=== PATIENT | female | born 1975 | race Caucasian/White ===

== ENCOUNTER 2020-10-12 11:56 | Emergency (ER) | payer SELFPAY ==
[~2020-10-12] VITALS: Ht 152.4 cm; Wt 45.5 kg
[2020-10-12] MEDS ORDERED: XANAX0.25 MG PO (12:58)
[2020-10-12] MEDS ORDERED: ZOLPIDEM5 M1 PO (12:58)
[2020-10-12 13:41] LABS: URINE BILIRUBIN - DIPSTICK NEGATIVE (NEGATIVE); URINE BLOOD DIPSTICK LARGE (NEGATIVE); URINE COLOR YELLOW; URINE GLUCOSE - DIPSTICK NEGATIVE (NEGATIVE); URINE KETONE NEGATIVE (NEGATIVE); URINE LEUK ESTERASE NEGATIVE (NEGATIVE); URINE NITRITE - DIPSTICK NEGATIVE (Negative); URINE PH 6.5 (4.5-8.0); URINE PROTEIN - DIPSTICK NEGATIVE (NEG-TRACE); URINE SPECIFIC GRAVITY <=1.005; URINE UROBILINOGEN - DIPSTICK 0.2 E.U./dL (0.2)
[2020-10-12 13:42] LABS: HEMATOCRIT 39.4 % (37.0-47.0); HEMOGLOBIN 13.4 g/dl (12.0-16.0); IMMATURE GRANULOCYTES 0.3 % (0.0-5.0); MEAN CELL VOLUME 90.8 fL CALC (80.0-100.0); MEAN CORPUSCULAR HGB 30.9 pG CALC (26.0-32.0); NEUT# 1.01 thou/uL (2.00-7.15); RED BLOOD COUNT 4.34 mill/uL (4.20-5.60); RED CELL DISTRI WIDTH 15.5 % (11.5-15.5)
[2020-10-12 13:46] LABS: URINE EPITHELIAL CELLS FEW EPI/hpf (0-FEW)
[2020-10-12 13:53] LABS: ALBUMIN 4.5 g/dL (3.2-5.0); ALKALINE PHOSPHATASE 75 u/l (38-126); ANION GAP 19 (6-22 (CALC)); BILIRUBIN, TOTAL 0.6 mg/dL (0.0-1.4); BUN 7 mg/dL (7-17); BUN/CREATININE RATIO 12 (12-20 (CALC)); CARBON DIOXIDE 19 mmol/l (22-30); CHLORIDE 107 mmol/l (95-108); CREATININE 0.6 mg/dL (0.5-1.0); GFR > 60 ML/MIN (>=60 (CALC)); GFR FOR AFR.AMER. > 60 ML/MIN (>=60 (CALC)); LIPASE 287 u/l (23-300); POTASSIUM 3.9 mmol/l (3.5-5.1); SGOT/AST 142 u/l (14-36); SODIUM 142 mmol/l (137-146); TOTAL PROTEIN 7.9 g/dL (6.3-8.2)
[2020-10-12 18:25] VITALS: BP 102/63
== END 2020-10-12 19:00 | disposition home or self-care (01) | DRG 897 ==
LOC: ED 11:56
DX: F10.10 Alcohol abuse, uncomplicated (principal); R79.89 Other specified abnormal findings of blood chemistry; F41.0 Panic disorder [episodic paroxysmal anxiety]; Z20.822 Contact with and (suspected) exposure to COVID-19

== ENCOUNTER 2021-04-21 12:37 | Inpatient (IN) | payer BC ==
[~2021-04-21] VITALS: Ht 152.4 cm; Wt 52.0 kg
[~2021-04-21 12:37] MED LIST: XANAX0.25 MG PO; ZOLPIDEM5 M1 PO
--- NOTE | 2021-04-21 12:45 | NUR ---
TO ROOM FOR TRIAGE
--- NOTE | 2021-04-21 13:00 | NUR ---
PATIENT RESTING, LABS OBTAINED, SPOUSE AT BEDSIDE. NO DISTRESS. WCTM
[2021-04-21 13:28] LABS: ALBUMIN 4.1 g/dL (3.2-5.0); AMYLASE 74 u/l (30-110); BILIRUBIN, TOTAL 0.5 mg/dL (0.0-1.4); BUN 8 mg/dL (7-17); BUN/CREATININE RATIO 19 (12-20 (CALC)); CHLORIDE 106 mmol/l (95-108); CREATININE 0.4 mg/dL (0.5-1.0); GFR > 60 ML/MIN (>=60 (CALC)); GFR FOR AFR.AMER. > 60 ML/MIN (>=60 (CALC)); LIPASE 530 u/l (23-300); POTASSIUM 3.6 mmol/l (3.5-5.1); SODIUM 147 mmol/l (137-146); TOTAL PROTEIN 8.4 g/dL (6.3-8.2)
[2021-04-21 13:37] LABS: HEMATOCRIT 39.6 % (37.0-47.0); HEMOGLOBIN 13.1 g/dl (12.0-16.0); MEAN CELL VOLUME 90.8 fL CALC (80.0-100.0); MEAN CORPUSCULAR HGB CONC 33.1 g/dL CAL (32.0-36.0); NEUT# 0.8 thou/uL (2.00-7.15); RED BLOOD COUNT 4.36 mill/uL (4.20-5.60); RED CELL DISTRI WIDTH 13.4 % (11.5-15.5)
[2021-04-21 13:38] LABS: ALKALINE PHOSPHATASE 115 u/l (38-126); ANION GAP 21 (6-22 (CALC)); CARBON DIOXIDE 24 mmol/l (22-30); ETHYL ALCOHOL 529 mg/dl (0-30); SGOT/AST 287 u/l (14-36)
--- NOTE | 2021-04-21 14:00 | NUR ---
Reassessment of patient completed. No distress noted. PATIENT RESTING, EYES CLOSED.
--- NOTE | 2021-04-21 14:20 | NUR ---
PATIENT ASSISTED ONTO BEDPAN FOR URINE SPECIMEN
[2021-04-21 14:30] LABS: URINE BILIRUBIN - DIPSTICK NEGATIVE (NEGATIVE); URINE BLOOD DIPSTICK NEGATIVE (NEGATIVE); URINE COLOR YELLOW; URINE GLUCOSE - DIPSTICK NEGATIVE (NEGATIVE); URINE KETONE NEGATIVE (NEGATIVE); URINE LEUK ESTERASE NEGATIVE (NEGATIVE); URINE PH 6.5 (4.5-8.0); URINE PROTEIN - DIPSTICK 30 mg/dL (NEG-TRACE); URINE SPECIFIC GRAVITY <=1.005
[2021-04-21 14:33] LABS: URINE NITRITE - DIPSTICK NEGATIVE (Negative)
[2021-04-21 14:37] LABS: URINE SQUAMOUS EPITHELIAL CELL FEW EPI/hpf (0-FEW)
--- NOTE | 2021-04-21 15:00 | NUR ---
NO DISTRESS. WCTM
--- NOTE | 2021-04-21 16:00 | NUR ---
PATIENT RESTING, NO CHANGE, VSS
--- NOTE | 2021-04-21 17:00 | NUR ---
NO CHANGE, AWAITING BED ASSIGNMENT. PATIENT DENIES NEEDS.
--- NOTE | 2021-04-21 18:30 | NUR ---
PATIENT RESTING. NO CHANGE. AWAITING BED ASSIGNEMNT
--- NOTE | 2021-04-21 20:54 | NUR ---
Admission Note Report Given to: Transported by: Wheelchair X Stretcher Transported with: X Nurse Transporter X Patent IV O2 X Special Ed Assistant Location: ICU X [facility]2
--- NOTE | 2021-04-21 20:55 | NUR ---
Reassessment of patient completed. No distress noted.
[2021-04-21 21:00] VITALS: BP 94/69
--- NOTE | 2021-04-21 21:00 | NUR ---
RECEIVED REPORT FROM ED NURSE JORDAN, PATIENT TRANSPORTED VIA BED, APPEARS TO BE DROWSY, WITH ONGOING IV MULTIVITAMINS @ 125CC/HR INFUSING WELL ON RAC, HOOKED ON TELEMETRY, PATIENT ORIENTED TO ROOM AND CALL LIGHT SYSTEM PATIENT PLACED ON BED ALARM, CALL LIGHT IN REACH
--- NOTE | 2021-04-21 21:12 | NUR ---
CIWA SCORE 12, PRN ATIVAN IV GIVEN.
[2021-04-22] VITALS: BP 96/63
--- NOTE | 2021-04-22 | NUR ---
PATIENT APPEARS TO BE SLEEPING WITH EYES CLOSED, BREATHIMG EVEN UNLABORED, CIWA SCORE 0, CALL LIGHT AT REACH.
[2021-04-22 04:00] VITALS: BP 96/63
--- NOTE | 2021-04-22 04:09 | NUR ---
PATIENT RESTING IN BED WITH EYES CLOSED, BREATHING UNLABORED, CIWA 1, CALL LIGHT AT REACH.
[2021-04-22 06:30] LABS: MEAN CELL VOLUME 92.7 fL CALC (80.0-100.0); MEAN CORPUSCULAR HGB 30.1 pG CALC (26.0-32.0); MEAN CORPUSCULAR HGB CONC 32.5 g/dL CAL (32.0-36.0); RED BLOOD COUNT 3.42 mill/uL (4.20-5.60); RED CELL DISTRI WIDTH 13.2 % (11.5-15.5)
[2021-04-22 06:46] LABS: HEMATOCRIT 31.7 % (37.0-47.0); HEMOGLOBIN 10.3 g/dl (12.0-16.0)
[2021-04-22 06:48] LABS: ANION GAP 12 (6-22 (CALC)); BUN 6 mg/dL (7-17); BUN/CREATININE RATIO 17 (12-20 (CALC)); CALCULATED LDLCHOLESTEROL 104 mg/dL (62-129 (CALC)); CARBON DIOXIDE 23 mmol/l (22-30); CHLORIDE 106 mmol/l (95-108); CHOLESTEROL HDL RATIO 3.4 (<4.4 (CALC)); CREATININE 0.4 mg/dL (0.5-1.0); GFR > 60 ML/MIN (>=60 (CALC)); GFR FOR AFR.AMER. > 60 ML/MIN (>=60 (CALC)); HDL CHOLESTEROL 50 mg/dL (>=40); MAGNESIUM 1.6 mg/dL (1.6-2.3); POTASSIUM 3.3 mmol/l (3.5-5.1); SODIUM 138 mmol/l (137-146); TOTAL CHOLESTEROL 169 mg/dl (0-199); TOTAL TRIGLYCERIDES 74 mg/dl (30-149); VLDL CHOLESTROL 15 mg/dl (1-41 (CALC))
--- NOTE | 2021-04-22 06:52 | NUR ---
REPORT REC FROM Manuel BERGERON RN
[2021-04-22 08:06] VITALS: BP 109/72
--- NOTE | 2021-04-22 08:06 | NUR ---
PT LAYING IN BED. A&O. PT MAKING MINIMAL EYE CONTACT, BUT PLEASANT. CIWA SCORE OF 13 GIVEN. TREMORS VISIBLY NOTED. MODERATLY ANXIOUS. SLIGHTL ANXIOUS, AGITATED. AND MILD LIANG REPORTED. PT DENIES ANY VISUAL OR AUDITORY HALLUCINATIONS, NO TACTILE DISTURBANCES REPORTED. CLEAR BREATH SOUNDS HEARD UPON AUSCULTATION. ACTIVE BOWEL SOUNDS X4 QUADRANTS. ASSESSMENT COMPLETED. CEMENT WORKER IN PLACE, BED ALARM PLACED FOR SAFETY. CALL LIGHT WITHIN REACH.
[2021-04-22 10:07] LABS: INTERNATIONAL NORMALIZED RATIO 1.1 RATIO (0.7-1.3); PROTHROMBIN TIME 11.6 SECONDS (9.0-12.5)
--- NOTE | 2021-04-22 10:10 | NUR ---
DR CORTÉS AND Sidney HOLDEN APRN AT BEDSIDE DISCUSSING POC
--- NOTE | 2021-04-22 10:18 | NUR ---
NAUSEA & VOMITING NOTED. ZOFRAN GIVEN. CALL LIGHT WITHIN REACH.
--- NOTE | 2021-04-22 10:42 | NUR ---
COMPATIBILITY WITH MAGNESIUM SULFATE AND MVI BAG, CONFIRMED WITH Sidney NEIL. BOTH ARE Y SITE COMPATIBLE
[2021-04-22 11:14] VITALS: BP 114/70
--- NOTE | 2021-04-22 11:54 | NUR ---
PT SLEEPING IN BED NO DISTRESS NOTED. CALL LIGHT WITHIN REACH. BED ALARM IN PLACE FOR SAFETY.
--- NOTE | 2021-04-22 12:25 | NUR ---
VERY UNSTEADY GAIT OBSERVED UPON AMBULATION TO THE BATHROOM. PT TWO PERSON ASSIST. PT UNABLE TO TOLERATE PO MEDICATIONS. D NAVIN GREWAL NOTIFIED. VOMITING EPISODE X2. BED ALARM PLACED FOR SAFETY. CALL LIGHT WITHIN REACH.
--- NOTE | 2021-04-22 14:54 | NUR ---
PT SLEEPING IN BED. AT BEDSIDE. CIWA CURRENTLY 13. PER D HAITIAN POTASSIUM CHLORIDE AND MVI BAG COMPATIBLE. K DOSSAGE AND RATE VERIFIED WITH Abhilash COELLO LPN. ATIVAN GIVEN PER MAR ORDERS. NO OTHER NEEDS AT THIS TIME. CALL LIGHT WITHIN REACH.
[2021-04-22 15:32] VITALS: BP 96/69
--- NOTE | 2021-04-22 16:11 | NUR ---
BED SOLIS PROVIDED. 600 CC OF URINE. CALL LIGHT WITHIN REACH.
--- NOTE | 2021-04-22 17:00 | NUR ---
PT TRANSFERRED TO ROOM 280, FOR CLOSER OBSERVATION. PT IN STABLE CONDITION DOING ROOM TRANSFER. PT ORIENTED TO ROOM. BED ALARM PLACED FOR SAFETY.
--- NOTE | 2021-04-22 18:13 | NUR ---
PT SLEEPING IN BED. PREMEDICATION WITH ZOFRAN FOR NAUSEA, GAVE SCHEDULED LIBRIUM DISSOLVED IN WATER, PT TOLERATED WELL. CALL LIGHT WITHIN REACH. BED ALARM IN PLACE FOR SAFETY.
[2021-04-22 19:00] VITALS: BP 91/62
--- NOTE | 2021-04-22 20:00 | NUR ---
PHYSICAL ASSESMENT COMPLETE. PT DIAPHORETIC WIH C/O OF NAUSEA. SCHEDULED MEDICATIONS AND PRN MEDICATION ADMINISTERED, SEE E-MAR. CIWA EVALUATION IN PLACE. PT DENIES ANY NEEDS AT THIS TIME. PLAN OF CARE REVIEWED, PT DENIES QUESTIONS, VERBALIZES UNDERSTANDING. ITEMS WITHIN REACH, BED LOCKED IN LOW POSITION W/ BEDRAILS UP X2. CALL RODRÍGUEZ WITHIN REACH, AGREES TO CALL PRN.
--- NOTE | 2021-04-22 22:28 | NUR ---
PT'S CIWA SCORED A 17. ADMINISTERED 2 MG OF ATIVAN. WILL CONTINUE TO MONITOR.
--- NOTE | 2021-04-22 23:54 | NUR ---
PT LAYING IN BED WITH EYES CLOSED, APPEARS TO BE SLEEPING, APPEARS COMFORTABLE AND IN NO DISTRESS. RESPIRATIONS REGULAR AND UNLABORED. WOKE PT TO GIVE HER 1200 OCLOCK MEDS.ITEMS REMAIN WITHIN REACH, CALL RODRÍGUEZ REMAINS WITHIN REACH. BED REMAINS LOCKED AND IN LOW POSITION WITH BEDRAILS UP X2. WILL CONTINUE TO MONITOR.
[2021-04-23] VITALS: BP 98/74
--- NOTE | 2021-04-23 03:43 | NUR ---
PT RESTING IN BED, PT VERY CONFUSED AND RESTLESS. MAKING REQUESTS FOR ATIVAN 15 MINUTES APART. RESP EVEN AND UNLABORED. CALL LIGHT IN REACH, CONTINUE TO MONITOR.
[2021-04-23 04:00] VITALS: BP 94/66
[2021-04-23 05:56] LABS: IMMATURE GRANULOCYTES 0.2 % (0.0-5.0); MEAN CELL VOLUME 94.8 fL CALC (80.0-100.0); MEAN CORPUSCULAR HGB CONC 31.7 g/dL CAL (32.0-36.0); NEUT# 3.04 thou/uL (2.00-7.15); RED CELL DISTRI WIDTH 12.9 % (11.5-15.5)
[2021-04-23 06:01] LABS: HEMATOCRIT 37.9 % (37.0-47.0)
[2021-04-23 06:09] LABS: ALKALINE PHOSPHATASE 109 u/l (38-126); BUN 4 mg/dL (7-17); BUN/CREATININE RATIO 11 (12-20 (CALC)); CHLORIDE 105 mmol/l (95-108); CREATININE 0.4 mg/dL (0.5-1.0); GFR > 60 ML/MIN (>=60 (CALC)); GFR FOR AFR.AMER. > 60 ML/MIN (>=60 (CALC)); MAGNESIUM 1.9 mg/dL (1.6-2.3); POTASSIUM 3.6 mmol/l (3.5-5.1); SGOT/AST 156 u/l (14-36); SODIUM 135 mmol/l (137-146)
[2021-04-23 06:14] LABS: ALBUMIN 3.2 g/dL (3.2-5.0); ANION GAP 18 (6-22 (CALC)); CARBON DIOXIDE 16 mmol/l (22-30); TOTAL PROTEIN 6.6 g/dL (6.3-8.2)
--- NOTE | 2021-04-23 08:00 | NUR ---
PT SLEEP UPON ENTERING ROOM. PTS VITAL AND ASSESSMENT DONE. S1 AND S2 HEARD. LUNG SOUNDS CLEAR. BOWEL SOUNDS ACTIVE IN ALL 4 QUADRANTS. IV PATENT AND HEALTHY. CIWA ASSESSMENT COMPLETED. NO DISTRESS NOTED. CALL LIGHT WITHIN REACH.
[2021-04-23 08:10] VITALS: BP 103/78
--- NOTE | 2021-04-23 10:47 | NUR ---
PT ASSISTED TO BSC, X1 ASSIST. LESS TREMORS NOTED COMPARED TO YESTERDAY, PT REPORTING TO FEEL BETTER TODAY. MORE AWAKE AND ALERT. ABLE TO CARRY A CONVERSATION. PLEASANT AND COOPERATIVE. ABI URINE NOTED, PT REPORTS TO HAVE TOLERATED BREAKFAST WELL. LINENS CHANGED BY THIS SLEEVE SEWER, PT ASSISTED BACK INTO BED. CALL LIGHT WITHIN REACH. BED ALARM IN PLACE FOR SAFETY.
--- NOTE | 2021-04-23 11:15 | NUR ---
DR CORTÉS AND Sidney HOLDEN APRN AT BEDSIDE DISCUSSING POC
[2021-04-23] MEDS ORDERED: ZOFRAN4 MG/TAB PO (11:24)
[2021-04-23] MEDS ORDERED: LIBRIUM25 M1 PO (11:24)
[2021-04-23 11:33] VITALS: BP 106/70
--- NOTE | 2021-04-23 12:00 | NUR ---
PT IN BED. NO DISTRESS NOTED. CALL LIGHT WITHIN REACH.
--- NOTE | 2021-04-23 14:00 | NUR ---
Discharge instructions given. Patient verbalizes understanding of same. Discharged in stable condition via Wheelchair to Home with staff. All belongings sent with pt.
== END 2021-04-23 14:01 | disposition home or self-care (01) | DRG 440 ==
LOC: ED 12:37 → ED-I 13:45 → ED 16:35 → MS2 16:36
PROVIDERS: Emergency Medicine; Nurse Practitioner; ADMIT Hospitalist; ATTEND Internal Medicine
DX: K85.20 Alcohol induced acute pancreatitis without necrosis or infection (principal); F10.220 Alcohol dependence with intoxication, uncomplicated; K86.0 Alcohol-induced chronic pancreatitis; K70.0 Alcoholic fatty liver; E83.42 Hypomagnesemia; E87.6 Hypokalemia; D69.6 Thrombocytopenia, unspecified; F41.0 Panic disorder [episodic paroxysmal anxiety]; Y90.8 Blood alcohol level of 240 mg/100 ml or more; Z20.822 Contact with and (suspected) exposure to COVID-19
CPT/HCPCS: J1650; J2060; J3475; Q9967; S0164

== ENCOUNTER 2021-05-28 11:15 | Emergency (ER) | payer BC ==
[~2021-05-28] VITALS: Ht 152.4 cm; Wt 48.0 kg
[~2021-05-28 11:15] MED LIST changes: +LIBRIUM25 M1 PO; +ZOFRAN4 MG/TAB PO
[2021-05-28 13:05] LABS: URINE BILIRUBIN - DIPSTICK NEGATIVE (NEGATIVE); URINE BLOOD DIPSTICK LARGE (NEGATIVE); URINE COLOR YELLOW; URINE GLUCOSE - DIPSTICK NEGATIVE (NEGATIVE); URINE KETONE NEGATIVE (NEGATIVE); URINE PROTEIN - DIPSTICK 100 mg/dL (NEG-TRACE); URINE SPECIFIC GRAVITY 1.015
[2021-05-28 13:09] LABS: URINE LEUK ESTERASE MODERATE (NEGATIVE); URINE NITRITE - DIPSTICK NEGATIVE (Negative)
[2021-05-28 13:23] LABS: URINE BACTERIA MANY hpf; URINE WBC >100 WBC/hpf (0-5)
[2021-05-28 13:24] LABS: URINE SQUAMOUS EPITHELIAL CELL FEW EPI/hpf (0-FEW)
[2021-05-28 14:42] LABS: ALBUMIN 4.9 g/dL (3.2-5.0); ALKALINE PHOSPHATASE 144 u/l (38-126); ANION GAP 23 (6-22 (CALC)); BILIRUBIN, TOTAL 0.8 mg/dL (0.0-1.4); BUN 12 mg/dL (7-17); BUN/CREATININE RATIO 25 (12-20 (CALC)); CARBON DIOXIDE 25 mmol/l (22-30); CHLORIDE 96 mmol/l (95-108); CREATININE 0.5 mg/dL (0.5-1.0); GFR > 60 ML/MIN (>=60 (CALC)); GFR FOR AFR.AMER. > 60 ML/MIN (>=60 (CALC)); LIPASE 456 u/l (23-300); POTASSIUM 4.2 mmol/l (3.5-5.1); SGOT/AST 222 u/l (14-36); SODIUM 140 mmol/l (137-146); TOTAL PROTEIN 9.2 g/dL (6.3-8.2)
[2021-05-28 14:43] LABS: HEMATOCRIT 40.2 % (37.0-47.0); MEAN CELL VOLUME 93.9 fL CALC (80.0-100.0); MEAN CORPUSCULAR HGB 30.4 pG CALC (26.0-32.0); MEAN CORPUSCULAR HGB CONC 32.3 g/dL CAL (32.0-36.0); NEUT# 3.39 thou/uL (2.00-7.15); RED BLOOD COUNT 4.28 mill/uL (4.20-5.60)
[2021-05-28 16:34] VITALS: BP 121/72
== END 2021-05-28 17:10 | disposition home or self-care (01) | DRG 552 ==
LOC: ED 11:15
PROVIDERS: Family Medicine
DX: M54.2 Cervicalgia (principal); K70.0 Alcoholic fatty liver; F10.20 Alcohol dependence, uncomplicated; D69.59 Other secondary thrombocytopenia; G62.9 Polyneuropathy, unspecified
CPT/HCPCS: J2060

== ENCOUNTER 2021-09-03 08:52 | Emergency (ER) | payer BC ==
[~2021-09-03] VITALS: Ht 152.4 cm; Wt 49.4 kg
[2021-09-03 09:45] LABS: HEMATOCRIT 37.1 % (37.0-47.0); IMMATURE GRANULOCYTES 0.2 % (0.0-5.0); MEAN CELL VOLUME 89.4 fL CALC (80.0-100.0); MEAN CORPUSCULAR HGB 28.9 pG CALC (26.0-32.0); MEAN CORPUSCULAR HGB CONC 32.3 g/dL CAL (32.0-36.0); NEUT# 3.25 thou/uL (2.00-7.15); RED BLOOD COUNT 4.15 mill/uL (4.20-5.60); RED CELL DISTRI WIDTH 13.7 % (11.5-15.5)
[2021-09-03 10:07] LABS: ALBUMIN 4.5 g/dL (3.2-5.0); ALKALINE PHOSPHATASE 91 u/l (38-126); AMYLASE 55 u/l (30-110); BUN 13 mg/dL (7-17); BUN/CREATININE RATIO 20 (12-20 (CALC)); CHLORIDE 99 mmol/l (95-108); CREATININE 0.7 mg/dL (0.5-1.0); GFR > 60 ML/MIN (>=60 (CALC)); GFR FOR AFR.AMER. > 60 ML/MIN (>=60 (CALC)); LIPASE 199 u/l (23-300); POTASSIUM 3.9 mmol/l (3.5-5.1); SODIUM 136 mmol/l (137-146); TOTAL PROTEIN 8.4 g/dL (6.3-8.2)
[2021-09-03 10:11] LABS: ANION GAP 22 (6-22 (CALC)); CARBON DIOXIDE 19 mmol/l (22-30); SGOT/AST 55 u/l (14-36)
[2021-09-03 10:20] LABS: MYOGLOBIN 21 ng/mL (0 - 62)
[2021-09-03] MEDS ORDERED: ONDANSETRON4 MG PO (11:32)
[2021-09-03] MEDS ORDERED: TAM75CAP PO (11:32)
[2021-09-03 11:51] LABS: URINE BILIRUBIN - DIPSTICK NEGATIVE (NEGATIVE); URINE BLOOD DIPSTICK NEGATIVE (NEGATIVE); URINE COLOR YELLOW; URINE GLUCOSE - DIPSTICK NEGATIVE (NEGATIVE); URINE KETONE >=80 mg/dL (NEGATIVE); URINE LEUK ESTERASE NEGATIVE (NEGATIVE); URINE PROTEIN - DIPSTICK 30 mg/dL (NEG-TRACE); URINE SPECIFIC GRAVITY >=1.030; URINE UROBILINOGEN - DIPSTICK 0.2 E.U./dL (0.2)
[2021-09-03 11:59] LABS: URINE NITRITE - DIPSTICK NEGATIVE (Negative)
[2021-09-03 12:01] LABS: URINE SQUAMOUS EPITHELIAL CELL MODERATE EPI/hpf (0-FEW)
[2021-09-03 12:04] LABS: URINE RBC 0-2 RBC/hpf (0-5); URINE TRANSITIONAL EPI. CELLS FEW hpf
[2021-09-03 13:27] VITALS: BP 99/68
== END 2021-09-03 13:27 | disposition home or self-care (01) | DRG 153 ==
LOC: ED 08:52
PROVIDERS: Emergency Medicine
DX: J11.1 Influenza due to unidentified influenza virus with other respiratory manifestations (principal); G62.9 Polyneuropathy, unspecified; F41.0 Panic disorder [episodic paroxysmal anxiety]; Z20.822 Contact with and (suspected) exposure to COVID-19

== ENCOUNTER 2021-10-28 10:40 | Emergency (ER) | payer SELFPAY ==
[~2021-10-28] VITALS: Ht 152.4 cm; Wt 55.0 kg
[~2021-10-28 10:40] MED LIST changes: +ONDANSETRON4 MG PO; +TAM75CAP PO
[2021-10-28] MEDS ORDERED: FLEXERIL5 M1 PO (13:26)
[2021-10-28] MEDS ORDERED: ZOFRAN4 MG/TAB PO (13:26)
[2021-10-28] MEDS ORDERED: TORADOL PO (13:26)
[2021-10-28 13:45] VITALS: BP 104/73
== END 2021-10-28 13:45 | disposition home or self-care (01) | DRG 153 ==
LOC: ED 10:40
DX: J11.1 Influenza due to unidentified influenza virus with other respiratory manifestations (principal); G62.9 Polyneuropathy, unspecified; Z20.822 Contact with and (suspected) exposure to COVID-19

== ENCOUNTER 2022-05-27 13:11 | Inpatient (IN) | payer OTHER ==
[~2022-05-27] VITALS: Ht 152.4 cm; Wt 54.5 kg
[~2022-05-27 13:11] MED LIST changes: +FLEXERIL5 M1 PO; +TORADOL PO
--- NOTE | 2022-05-27 13:15 | NUR ---
PT TO ROOM VIA WC
--- NOTE | 2022-05-27 14:00 | NUR ---
Reassessment of patient completed. No distress noted.
[2022-05-27 14:16] LABS: BILIRUBIN, TOTAL 1.1 mg/dL (0.0-1.4); BUN 10 mg/dL (7-17); BUN/CREATININE RATIO 18 (12-20 (CALC)); CARBON DIOXIDE 20 mmol/l (22-30); CREATININE 0.6 mg/dL (0.5-1.0); GFR FOR AFR.AMER. > 60 ML/MIN (>=60 (CALC)); GFR OTHER RACES > 60 ML/MIN (>=60 (CALC)); LIPASE 468 u/l (23-300); TOTAL PROTEIN 7.8 g/dL (6.3-8.2)
[2022-05-27 14:30] LABS: HEMATOCRIT 37.5 % (37.0-47.0); HEMOGLOBIN 12.7 g/dl (12.0-16.0); MEAN CELL VOLUME 88.4 fL CALC (80.0-100.0); MEAN CORPUSCULAR HGB CONC 33.9 g/dL CAL (32.0-36.0); NEUT# 0.88 thou/uL (2.00-7.15); RED BLOOD COUNT 4.24 mill/uL (4.20-5.60); RED CELL DISTRI WIDTH 15.6 % (11.5-15.5)
[2022-05-27 14:58] LABS: ALKALINE PHOSPHATASE 142 u/l (38-126); SGOT/AST 616 u/l (14-36)
--- NOTE | 2022-05-27 15:00 | NUR ---
Reassessment of patient completed. No distress noted.
[2022-05-27 15:32] LABS: ANION GAP 23 (6-22 (CALC)); CHLORIDE 99 mmol/l (95-108); POTASSIUM 3.7 mmol/l (3.5-5.1); SODIUM 138 mmol/l (137-146)
[2022-05-27 15:49] LABS: INTERNATIONAL NORMALIZED RATIO 1.2 RATIO (0.7-1.3); PROTHROMBIN TIME 11.5 SECONDS (9.0-12.5)
--- NOTE | 2022-05-27 16:00 | NUR ---
Reassessment of patient completed. No distress noted.
[2022-05-27 16:15] LABS: ETHYL ALCOHOL 324 mg/dl (0-30)
[2022-05-27] MEDS ORDERED: FLEXERIL5 M1 PO (16:30)
--- NOTE | 2022-05-27 17:00 | NUR ---
Reassessment of patient completed. No distress noted.
[2022-05-27 17:26] VITALS: BP 123/85
--- NOTE | 2022-05-27 17:34 | NUR ---
Admission Note Report Given to: yessica jasmine rn Transported by: Wheelchair X Stretcher Transported with: X Nurse Transporter X Patent IV O2 X Pearl Restorer Location: ICU X [facility]2 PATIENT REPORT GIVEN AT BEDSIDE. PATIENT ON ROOM AIR O2. NAD NOTED
--- NOTE | 2022-05-27 17:36 | NUR ---
PT ARRIVED TO MS @ 1736 VIA STRETCHER, ACCOMPANIED BY JONATHAN MARTIN. RECEIVED BEDSIDE REPORT FROM ER NURSE. PT A&O X3. PT ORIENTED TO ROOM AND USE OF CALL LIGHT. EVEN AND UNLABORED RESPIRATIONS; CLEAR LUNG SOUNDS UPON AUSCULTATION. TELEMETRY IN PLACE. IV SITE FLUSHED: #20G RIGHT FOREARM, HEALTHY AND PATENT. ACTIVE BOWEL SOUNDS X4 QUADRANTS. SKIN IS INTACT. SAFETY PRECAUTIONS IN PLACE WITH CALL LIGHT IN REACH.
[2022-05-27 19:19] VITALS: BP 101/74
--- NOTE | 2022-05-27 21:20 | NUR ---
PATIENT RESTING IN BED. NO DISTRESS NOTED. AOX3. ASSESSMENT COMPLETED. FALL PRECAUTIONS IN PALCE. CALL RODRÍGUEZ WITHIN REACH.
[2022-05-28 00:12] VITALS: BP 97/64
--- NOTE | 2022-05-28 03:38 | NUR ---
RECEIVED CALL FROM ELECTRIC BLANKET PACKER OF PATIENT ELEVATED HR 170'S. ON ASSESSMENT PATIENT ATTEMPTING TO GET OUT OF BED TO USE BATHROOM. PATIENT ASSISTED TO BATHROOM. PATIENT HAD ACCIDENTAL INCONTINENCE DUE TO URGENCY. ASSISTED PATIENT TO CLEAN UP AND BACK TO BED. CIWA SCALE COMPLETED. VISIBLE TREMORS, ANXIETY AND NAUSEA PRESENT. BED ALAM INITIATED. FALL PRECAUTIONS IN PLACE. CALL RODRÍGUEZ WITHIN REACH.
--- NOTE | 2022-05-28 03:43 | NUR ---
NOTIFIED BY ORACLE ADF DEVELOPER THAT PATIENT HAD POSSIBLE RYTHYM CHANGE TO AFLUTTER. ORDER PLACED FOR EKG. RT COMPLETED EKG. SEE RESULT IN CHART.NO CHANGES NOTED. NO FURTHER ACTIONS AT THIS TIME. FALL PRECAUTIONS IN PLACE. CALL RODRÍGUEZ WITHIN REACH.
[2022-05-28 03:46] VITALS: BP 108/72
[2022-05-28 05:46] LABS: URINE BLOOD DIPSTICK NEGATIVE (NEGATIVE); URINE COLOR YELLOW; URINE GLUCOSE - DIPSTICK NEGATIVE (NEGATIVE); URINE KETONE 15 mg/dL (NEGATIVE); URINE LEUK ESTERASE TRACE (NEGATIVE); URINE PH 7.5 (4.5-8.0); URINE PROTEIN - DIPSTICK TRACE mg/dL (NEG-TRACE); URINE UROBILINOGEN - DIPSTICK >=8.0 E.U./dL (0.2)
[2022-05-28 05:48] LABS: URINE BILIRUBIN - DIPSTICK SMALL (NEGATIVE); URINE NITRITE - DIPSTICK POSITIVE (Negative)
[2022-05-28 05:55] LABS: HEMATOCRIT 34.1 % (37.0-47.0); HEMOGLOBIN 11.4 g/dl (12.0-16.0); MEAN CELL VOLUME 90.5 fL CALC (80.0-100.0); MEAN CORPUSCULAR HGB 30.2 pG CALC (26.0-32.0); MEAN CORPUSCULAR HGB CONC 33.4 g/dL CAL (32.0-36.0); NEUT# 1.32 thou/uL (2.00-7.15); RED BLOOD COUNT 3.77 mill/uL (4.20-5.60); RED CELL DISTRI WIDTH 15.8 % (11.5-15.5)
[2022-05-28 06:07] LABS: URINE SQUAMOUS EPITHELIAL CELL FEW EPI/hpf (0-FEW)
[2022-05-28 06:08] LABS: URINE BACTERIA MANY hpf
[2022-05-28 06:16] VITALS: BP 109/79
[2022-05-28 07:17] LABS: ALBUMIN 3.3 g/dL (3.2-5.0); ALKALINE PHOSPHATASE 112 u/l (38-126); AMYLASE 64 u/l (30-110); ANION GAP 19 (6-22 (CALC)); BILIRUBIN, TOTAL 1.4 mg/dL (0.0-1.4); BUN 6 mg/dL (7-17); BUN/CREATININE RATIO 13 (12-20 (CALC)); CARBON DIOXIDE 18 mmol/l (22-30); CHLORIDE 103 mmol/l (95-108); CREATININE 0.5 mg/dL (0.5-1.0); GFR FOR AFR.AMER. > 60 ML/MIN (>=60 (CALC)); GFR OTHER RACES > 60 ML/MIN (>=60 (CALC)); LIPASE 501 u/l (23-300); MAGNESIUM 1.1 mg/dL (1.6-2.3); POTASSIUM 3.4 mmol/l (3.5-5.1); SGOT/AST 461 u/l (14-36); SODIUM 138 mmol/l (137-146); TOTAL PROTEIN 6.5 g/dL (6.3-8.2)
--- NOTE | 2022-05-28 07:20 | NUR ---
RECEIVED HANDOFF REPORT FROMN OFFGOING RN. PATIENT ALERT AND ORIENTED X3. PATIENT VOMITTING UPON ENTERING THE ROOM. EMESIS BAGS PROVIDED AND OFFERED MEDS FOR NAUSEA, HOWEVER PATEINT STATES THAT THE MEDICATION OFFEED DOES NOT WORK. PATIENT OFFERED ADDITIONAL PILLOWS TO REPOSITION. CALL LIGHT WITHIN REACH. BED LOCKED IN LOWEST POSITION.
[2022-05-28 10:04] VITALS: BP 115/81
--- NOTE | 2022-05-28 11:25 | NUR ---
PATIENT WAS GIVEN PO MEDS AND BEGAN TO GAG AND STATED THAT SHE COULD NOT SWALLOW THEM. MD AND EMBEDDED SOFTWARE DESIGN ENGINEER NOTIFIED AND ORDERS HAVE BEEN PROVIDED.
--- NOTE | 2022-05-28 13:41 | NUR ---
PATIENT ALERT AND ORIENTED X3. PATIENT COMPLAINED OF NAUSEA HOWEVER IS STILL REFUSING MEDICATION. CALL LIGHT WITHIN REACH, BED LOCKED IN LOWEST POSITION.
[2022-05-28 14:24] VITALS: BP 107/79
--- NOTE | 2022-05-28 16:45 | NUR ---
PATIENT ASLEEP, IV RUNNING MAG SULF. BED LOCKED IN LOWEST POSITION, CALL LIGHT WITHIN REACH.
[2022-05-28 18:48] VITALS: BP 104/73
--- NOTE | 2022-05-28 18:55 | NUR ---
DUE TO PT CONDITION EARLIER IN SHIFT, MEDICATIONS WERE DELAYED UNTIL STABLE. PATIENT WILL NEED TO RECEIVE 1100A ABX ONCE MAG. SULFATE INFUSION COMPLETES. PATIENTS MEDS HAD TO BE CHANGED FROM PO TO IV BECAUSE SHE COULD NOT SWALLOW MEDICATION WITHOUT GAGGING AND CHOKING. WILL NOTIFY NIGHTSHIFT RN.
--- NOTE | 2022-05-28 20:00 | NUR ---
PT IN BED AWAKE, PT CIWA SCORE 6, PT HAS MILD TREMOR AND MILD ANXIETY, NO DISTRESS NOTED, PT STATES NO PAIN AND SHE IS FEELING BETTER, BED ALARM ON AND IN LOW POSITION, CALL LIGHT IN REACH
[2022-05-29 00:10] VITALS: BP 100/68
[2022-05-29 04:29] VITALS: BP 98/67
--- NOTE | 2022-05-29 04:57 | NUR ---
PT IN BED AWAKE, NO DISTRESS NOTED, CIWA SCORE 5, MILD TREMORS AND MILD ANXIETY, NO OVERNIGHT EVENTS, BED ALARM ON AND IN LOW POSITION, CALL LIGHT IN REACH
[2022-05-29 05:37] LABS: HEMATOCRIT 34.4 % (37.0-47.0); HEMOGLOBIN 11.7 g/dl (12.0-16.0); IMMATURE GRANULOCYTES 0.4 % (0.0-5.0); MEAN CELL VOLUME 88.9 fL CALC (80.0-100.0); MEAN CORPUSCULAR HGB 30.2 pG CALC (26.0-32.0); NEUT# 1.69 thou/uL (2.00-7.15); RED BLOOD COUNT 3.87 mill/uL (4.20-5.60); RED CELL DISTRI WIDTH 15.3 % (11.5-15.5)
[2022-05-29 05:57] LABS: ALBUMIN 3.1 g/dL (3.2-5.0); ALKALINE PHOSPHATASE 133 u/l (38-126); ANION GAP 12 (6-22 (CALC)); BUN 2 mg/dL (7-17); BUN/CREATININE RATIO 6 (12-20 (CALC)); CARBON DIOXIDE 19 mmol/l (22-30); CHLORIDE 107 mmol/l (95-108); CREATININE 0.4 mg/dL (0.5-1.0); GFR FOR AFR.AMER. > 60 ML/MIN (>=60 (CALC)); GFR OTHER RACES > 60 ML/MIN (>=60 (CALC)); LIPASE 482 u/l (23-300); POTASSIUM 3.4 mmol/l (3.5-5.1); SGOT/AST 350 u/l (14-36); SODIUM 134 mmol/l (137-146); TOTAL PROTEIN 6.2 g/dL (6.3-8.2)
[2022-05-29 06:02] LABS: BILIRUBIN, TOTAL 2.2 mg/dL (0.0-1.4); MAGNESIUM 1.8 mg/dL (1.6-2.3)
[2022-05-29 06:27] VITALS: BP 105/73
[2022-05-29 06:51] VITALS: BP 105/73
--- NOTE | 2022-05-29 07:34 | NUR ---
PT RESTING IN LOW FOWLERS POSITION. A/OX3 ASSESSMENT AND VS COMPLETED. HEART RHYTHM NORMAL. RESPIRATIONS EVEN AND UNLABORED. BOWEL SOUNDS ACTIVE. PT STATES UNABLE TO SWALLOW PILLS BUT WILL BE WILLING TO TRY. IV SITE NOTED TO RFA. INFUSIGN WITH NS @60. PT STATES NO WOUNDS TO SKIN. PT STATES ABLE TO URINATE WELL. PT STATES NO ADDITIONAL NEEDS AT THE TIME ALL SAFETY PRECAUTIONS IN PLACE.
[2022-05-29 10:06] VITALS: BP 104/74
[2022-05-29 10:07] VITALS: BP 104/74
[2022-05-29] MEDS ORDERED: KEFLEX500 MG PO (11:33)
[2022-05-29] MEDS ORDERED: LIBRIUM25 MG PO (11:33)
--- NOTE | 2022-05-29 11:51 | NUR ---
PT TO BE DC SOON . PT DENIES ADDITIONAL NEEDS AT THE TIME OTHER THAN READY TO GO HOME. ALL SAFETY PRECAUTIONS IN PLACE .
--- NOTE | 2022-05-29 14:24 | NUR ---
Discharge instructions given. Patient verbalizes understanding of same. Discharged in stable condition via Wheelchair to Home with volunteer. All belongings sent with pt. PT IV REMOVED , TELE REMOVED WITH ER INFORMED.
[2022-05-30] MEDS ORDERED: LIBRIUM25 MG PO (11:24)
== END 2022-05-29 14:24 | disposition home or self-care (01) | DRG 439 ==
LOC: ED 13:11 → ED-I 14:26 → ED 14:26 → ED-I 15:50 → ED 16:27 → MS2 16:28
PROVIDERS: Nurse Practitioner; ADMIT Internal Medicine; ATTEND Internal Medicine
DX: K85.20 Alcohol induced acute pancreatitis without necrosis or infection (principal); F10.239 Alcohol dependence with withdrawal, unspecified; N39.0 Urinary tract infection, site not specified; K70.10 Alcoholic hepatitis without ascites; J45.909 Unspecified asthma, uncomplicated; G62.9 Polyneuropathy, unspecified; F41.0 Panic disorder [episodic paroxysmal anxiety]; K70.0 Alcoholic fatty liver; Y90.8 Blood alcohol level of 240 mg/100 ml or more; D69.59 Other secondary thrombocytopenia; Z20.822 Contact with and (suspected) exposure to COVID-19
CPT/HCPCS: G0378; J2060; J3475; S0164

== ENCOUNTER 2022-08-25 14:18 | Emergency (ER) | payer OTHER ==
[2022-08-25] VITALS (13 sets, daily range): BP systolic 108–148; BP diastolic 80–112
[~2022-08-25] VITALS: Ht 152.4 cm; Wt 54.5 kg
[~2022-08-25 14:18] MED LIST changes: +KEFLEX500 MG PO; +LIBRIUM25 MG PO
[2022-08-25 15:58] LABS: HEMATOCRIT 33.3 % (37.0-47.0); HEMOGLOBIN 11.7 g/dl (12.0-16.0); IMMATURE GRANULOCYTES 0.3 % (0.0-5.0); MEAN CELL VOLUME 90.7 fL CALC (80.0-100.0); MEAN CORPUSCULAR HGB 31.9 pG CALC (26.0-32.0); MEAN CORPUSCULAR HGB CONC 35.1 g/dL CAL (32.0-36.0); NEUT# 2.15 thou/uL (2.00-7.15); RED BLOOD COUNT 3.67 mill/uL (4.20-5.60); RED CELL DISTRI WIDTH 15.7 % (11.5-15.5)
[2022-08-25 16:17] LABS: ALKALINE PHOSPHATASE 177 u/l (38-126); BUN 5 mg/dL (7-17); BUN/CREATININE RATIO 10 (12-20 (CALC)); CHLORIDE 96 mmol/l (95-108); CREATININE 0.5 mg/dL (0.5-1.0); GFR FOR AFR.AMER. > 60 ML/MIN (>=60 (CALC)); GFR OTHER RACES > 60 ML/MIN (>=60 (CALC)); LIPASE 508 u/l (23-300); POTASSIUM 2.9 mmol/l (3.5-5.1); SGOT/AST 454 u/l (14-36); SODIUM 138 mmol/l (137-146)
[2022-08-25 16:22] LABS: URINE BLOOD DIPSTICK NEGATIVE (NEGATIVE); URINE GLUCOSE - DIPSTICK 100 mg/dL (NEGATIVE); URINE KETONE TRACE mg/dL (NEGATIVE); URINE LEUK ESTERASE NEGATIVE (NEGATIVE); URINE PROTEIN - DIPSTICK 30 mg/dL (NEG-TRACE); URINE SPECIFIC GRAVITY 1.015; URINE UROBILINOGEN - DIPSTICK >=8.0 E.U./dL (0.2)
[2022-08-25 16:23] LABS: ALBUMIN 4.4 g/dL (3.2-5.0); ANION GAP 20 (6-22 (CALC)); BILIRUBIN, TOTAL 7.4 mg/dL (0.0-1.4); CARBON DIOXIDE 25 mmol/l (22-30); TOTAL PROTEIN 8.7 g/dL (6.3-8.2)
[2022-08-25 16:26] LABS: URINE BILIRUBIN - DIPSTICK LARGE (NEGATIVE); URINE COLOR AMBER; URINE NITRITE - DIPSTICK NEGATIVE (Negative)
[2022-08-25 16:27] LABS: URINE RBC 0-2 RBC/hpf (0-5); URINE WBC 0-2 WBC/hpf (0-5)
[2022-08-25] MEDS ORDERED: ZOLPIDEM10 M1 PO (18:29)
[2022-08-25] MEDS ORDERED: PROMETHAZINE HY25 M1 PO (20:18)
[2022-08-25] MEDS ORDERED: POTASSIUM CHLO20 ME1 PO (20:18)
== END 2022-08-25 20:40 | disposition home or self-care (01) | DRG 948 ==
LOC: ED 14:18
PROVIDERS: Family Medicine
DX: R74.8 Abnormal levels of other serum enzymes (principal); K70.0 Alcoholic fatty liver; F10.20 Alcohol dependence, uncomplicated; E87.6 Hypokalemia
CPT/HCPCS: J3475; Q9967

== ENCOUNTER 2022-09-08 16:59 | Emergency (ER) | payer OTHER ==
[~2022-09-08] VITALS: Ht 152.4 cm; Wt 55.0 kg
[2022-09-08] VITALS (11 sets, daily range): BP systolic 93–111; BP diastolic 62–75
[~2022-09-08 16:59] MED LIST changes: +POTASSIUM CHLO20 ME1 PO; +PROMETHAZINE HY25 M1 PO; +ZOLPIDEM10 M1 PO
[2022-09-08] MEDS ORDERED: MAGNESIUM400 M1 PO (17:22)
[2022-09-08] MEDS ORDERED: POTASSIUM99 MG PO (17:22)
[2022-09-08] MEDS ORDERED: FOLIC ACID1 M1 PO (17:23)
[2022-09-08] MEDS ORDERED: B1100 MG PO (17:23)
[2022-09-08] MEDS ORDERED: MULT VITAMIN PO (17:24)
[2022-09-08 17:44] LABS: URINE BLOOD DIPSTICK NEGATIVE (NEGATIVE); URINE GLUCOSE - DIPSTICK 100 mg/dL (NEGATIVE); URINE KETONE TRACE mg/dL (NEGATIVE); URINE LEUK ESTERASE NEGATIVE (NEGATIVE); URINE PROTEIN - DIPSTICK NEGATIVE (NEG-TRACE); URINE UROBILINOGEN - DIPSTICK 0.2 E.U./dL (0.2)
[2022-09-08 17:46] LABS: HEMATOCRIT 36.3 % (37.0-47.0); HEMOGLOBIN 11.9 g/dl (12.0-16.0); IMMATURE GRANULOCYTES 0.6 % (0.0-5.0); MEAN CORPUSCULAR HGB 34.4 pG CALC (26.0-32.0); MEAN CORPUSCULAR HGB CONC 32.8 g/dL CAL (32.0-36.0); NEUT# 4.43 thou/uL (2.00-7.15); RED BLOOD COUNT 3.46 mill/uL (4.20-5.60); RED CELL DISTRI WIDTH 21.2 % (11.5-15.5)
[2022-09-08 17:47] LABS: MEAN CELL VOLUME 104.9 fL CALC (80.0-100.0); URINE BILIRUBIN - DIPSTICK LARGE (NEGATIVE); URINE COLOR DK. YELLOW; URINE NITRITE - DIPSTICK NEGATIVE (Negative)
[2022-09-08 17:54] LABS: ALBUMIN 3.8 g/dL (3.2-5.0); ALKALINE PHOSPHATASE 156 u/l (38-126); BUN 5 mg/dL (7-17); BUN/CREATININE RATIO 12 (12-20 (CALC)); CARBON DIOXIDE 20 mmol/l (22-30); CHLORIDE 105 mmol/l (95-108); CREATININE 0.4 mg/dL (0.5-1.0); GFR FOR AFR.AMER. > 60 ML/MIN (>=60 (CALC)); GFR OTHER RACES > 60 ML/MIN (>=60 (CALC)); LIPASE 498 u/l (23-300); SGOT/AST 160 u/l (14-36); SODIUM 139 mmol/l (137-146); TOTAL PROTEIN 8.6 g/dL (6.3-8.2)
[2022-09-08 17:55] LABS: ANION GAP 18 (6-22 (CALC)); POTASSIUM 4.3 mmol/l (3.5-5.1)
[2022-09-08 17:56] LABS: BILIRUBIN, TOTAL 26.2 mg/dL (0.0-1.4)
== END 2022-09-08 21:40 | disposition home or self-care (01) | DRG 442 ==
LOC: ED 16:59
PROVIDERS: Family Medicine
DX: K70.0 Alcoholic fatty liver (principal); R17 Unspecified jaundice; R94.5 Abnormal results of liver function studies; F10.20 Alcohol dependence, uncomplicated
CPT/HCPCS: Q9967

== ENCOUNTER 2022-12-30 09:26 | Emergency (ER) | payer OTHER ==
[~2022-12-30] VITALS: Ht 152.4 cm; Wt 52.2 kg
[~2022-12-30 09:26] MED LIST changes: +B1100 MG PO; +FOLIC ACID1 M1 PO; +MAGNESIUM400 M1 PO; +MULT VITAMIN PO; +POTASSIUM99 MG PO
[2022-12-30 09:43] VITALS: BP 94/58
[2022-12-30 10:00] VITALS: BP 92/58
[2022-12-30 11:00] VITALS: BP 88/57
[2022-12-30 11:05] VITALS: BP 91/63
[2022-12-30] MEDS ORDERED: TAM75CAP PO (12:00)
[2022-12-30 12:22] VITALS: BP 91/63
== END 2022-12-30 12:34 | disposition home or self-care (01) | DRG 195 ==
LOC: ED 09:26
DX: J10.1 Influenza due to other identified influenza virus with other respiratory manifestations (principal); Z20.822 Contact with and (suspected) exposure to COVID-19

== ENCOUNTER 2023-03-08 07:36 | Emergency (ER) | payer OTHER ==
[2023-03-08] VITALS (15 sets, daily range): BP systolic 87–131; BP diastolic 57–95
[~2023-03-08] VITALS: Ht 152.4 cm; Wt 58.0 kg
[2023-03-08 08:10] LABS: BASO% 0.8 % (0-3); EOS% 7.4 % (0-8); HEMATOCRIT 35.6 % (37.0-47.0); LYMPH% 49.9 % (15-41); MEAN CORPUSCULAR HGB 30.2 pG CALC (26.0-32.0); MEAN CORPUSCULAR HGB CONC 33.7 g/dL CAL (32.0-36.0); MONO% 7.4 % (2-13); NEUT# 1.68 thou/uL (2.00-7.15); NEUT% 34.5 % (42-76); RED BLOOD COUNT 3.97 mill/uL (4.20-5.60); RED CELL DISTRI WIDTH 14.8 % (11.5-15.5)
[2023-03-08 08:24] LABS: ALBUMIN 4.1 g/dL (3.2-5.0); ALKALINE PHOSPHATASE 121 u/l (38-126); ANION GAP 16 (6-22 (CALC)); BUN 11 mg/dL (7-17); BUN/CREATININE RATIO 19 (12-20 (CALC)); CARBON DIOXIDE 25 mmol/l (22-30); CHLORIDE 106 mmol/l (95-108); CREATININE 0.6 mg/dL (0.5-1.0); GFR FOR AFR.AMER. > 60 ML/MIN (>=60 (CALC)); GFR OTHER RACES > 60 ML/MIN (>=60 (CALC)); POTASSIUM 3.5 mmol/l (3.5-5.1); SGOT/AST 229 u/l (14-36); SODIUM 144 mmol/l (137-146); TOTAL PROTEIN 7.6 g/dL (6.3-8.2)
[2023-03-08 08:32] LABS: MEAN CELL VOLUME 89.7 fL CALC (80.0-100.0)
== END 2023-03-08 12:19 | disposition home or self-care (01) | DRG 313 ==
LOC: ED 07:36
PROVIDERS: Family Medicine
DX: R07.9 Chest pain, unspecified (principal); G62.9 Polyneuropathy, unspecified; F41.0 Panic disorder [episodic paroxysmal anxiety]; K70.9 Alcoholic liver disease, unspecified; Z20.822 Contact with and (suspected) exposure to COVID-19